=== PATIENT | female | born 1975 | race Caucasian/White ===

== ENCOUNTER 2019-06-26 11:45 | Emergency (ER) | payer BC ==
[~2019-06-26] VITALS: Ht 170.2 cm; Wt 67.1 kg
[~2019-06-26 11:45] MED LIST: BUPR100T7 PO; LISI10TA2 PO; OXYC1TAB15 PO
[2019-06-26 11:57] VITALS: BP 109/66
[2019-06-26] MEDS ORDERED: KETOROLAC 30 MG/ML VIAL. IM ONE (12:30)
--- NOTE | 2019-06-26 12:35 | RAD ---
Exam performed: Two views left hip. Clinical indication: Patient felt a pop and pain in the left hip and carrying a heavy object Date of Service: 06/26/2019 Comparison: None available FINDINGS: AP and lateral radiographs of the hip reveal the osseous structures to be intact and well aligned. The joint space is well-preserved. Evidence of fracture or dislocation is absent. Nonspecific bowel gas pattern Impression: No acute abnormal mobility seen in the left hip. Electronically signed by: Denise Norton MD (06/26/2019 12:33 PM) [facility]
[2019-06-26] MEDS ORDERED: HYDR-3165 PO (13:04)
[2019-06-26] MEDS ORDERED: MELO7.5T29 PO (13:04)
[2019-06-26] MEDS ORDERED: ORPH-16 PO (13:04)
--- NOTE | 2019-06-26 13:05 | PHYS DOC ---
Past History Past Medical History: Hypertension, Migraines, Other Past Surgical History: Appendectomy, Cholecystectomy, , Tubal ligation Alcohol Use: None Drug Use: None Adult General Chief Complaint Chief Complaint: HIP PAIN HPI HPI Patient is a 44-year-old female presents complaining of left hip pain that started yesterday. She was moving a heavy speaker and felt a pop in her left hip. She is able to walk but it hurts. No loss of bowel or bladder control. She did not fall. Increased pain with movement. Pain is moderate in intensity. Burning sensation as well. Feels like her leg will give out in the hip. No radiation of the discomfort.[] Review of Systems Review of Systems Constitutional: Denies fever or chills [] Eyes: Denies change in visual acuity, redness, or eye pain [] HENT: Denies nasal congestion or sore throat [] Respiratory: Denies cough or shortness of breath [] Cardiovascular: No chest pain or palpitations[] GI: Denies abdominal pain, nausea, vomiting, bloody stools or diarrhea [] : Denies dysuria or hematuria [] Musculoskeletal: Denies back pain, see history of present illness[] Integument: Denies rash or skin lesions [] Neurologic: Denies headache, focal weakness or sensory changes [] Endocrine: Denies polyuria or polydipsia [] All other systems were reviewed and found to be within normal limits, except as documented in this note. Current Medications Current Medications Current Medications Medications (Trade) Dose Ordered Sig/[facility] Start Time Stop Time Status Last Admin Dose Admin Ketorolac Tromethamine (Toradol 30mg Vial) 30 mg 1X ONCE 06/26/19 12:30 06/26/19 12:31 DC 06/26/19 12:28 30 MG Allergies Allergies Allergies Coded Allergies Type Severity Reaction Last Updated Verified No Known Drug Allergies 05/30/16 No Physical Exam Physical Exam Constitutional: Well developed, well nourished, no acute distress, non-toxic appearance. [] HENT: Normocephalic, atraumatic, bilateral external ears normal, oropharynx moist, no oral exudates, nose normal. [] Eyes: PERRLA, EOMI, conjunctiva normal, no discharge. [] Neck: Normal range of motion, no tenderness, supple, no stridor. [] Cardiovascular:Heart rate regular rhythm, no murmur [] Lungs & Thorax: Bilateral breath sounds clear to auscultation [] Abdomen: Bowel sounds normal, soft, no tenderness, no masses, no pulsatile masses. [] Skin: Warm, dry, no erythema, no rash. [] Back: No tenderness, no CVA tenderness. [] Extremities: Left hip has tenderness to palpation around the sciatic region. Limited active range of motion at the hip secondary to pain. Pelvis stable in 3 planes. No knee tenderness. She is able to ambulate with an antalgic gait. Patient is distally neurovascularly intact. The other 3 extremities show: No tenderness, no cyanosis, no clubbing, ROM intact, no edema. [] Neurologic: Alert and oriented X 3, normal motor function, normal sensory function, no focal deficits noted. [] Psychologic: Affect normal, judgement normal, mood normal. [] Current Patient Data Vital Signs Vital Signs Date Time Temp Pulse Resp B/P (MAP) Pulse Ox O2 Delivery O2 Flow Rate FiO2 06/26/19 11:57 97.9 80 16 100 Room Air EKG EKG [] Radiology/Procedures Radiology/Procedures PROCEDURE: HIP LEFT 2V WITH PELVIS Exam performed: Two views left hip. Clinical indication: Patient felt a pop and pain in the left hip and carrying a heavy object Date of Service: 06/26/2019 Comparison: None available FINDINGS: AP and lateral radiographs of the hip reveal the osseous structures to be intact and well aligned. The joint space is well-preserved. Evidence of fracture or dislocation is absent. Nonspecific bowel gas pattern Impression: No acute abnormal mobility seen in the left hip.[] Course & Med Decision Making Course & Med Decision Making Pertinent Labs and Imaging studies reviewed. (See chart for details) ED course: Patient arrived, was placed in bed, and tolerated exam well. She was transported to and from radiology with any Patients. She was given parenteral pain medicines which didn't improve her discomfort. After the return of the imaging findings, these were discussed with the patient voiced understanding. All questions were answered. She was discharged in improved condition. Medical decision making: There is no evidence of a fracture or dislocation. There may be some soft tissue injury that would require an MRI for follow-up. Number eye has not required on an emergent basis at this time. No evidence of cauda equina syndrome or neurologic or vascular compromise.[] Dragon Disclaimer Dragon Disclaimer This electronic medical record was generated, in whole or in part, using a voice recognition dictation system. Departure Departure: Impression: Primary Impression: Sprain of left hip Disposition: 01 HOME, SELF-CARE Condition: IMPROVED Referrals: XU RAMIREZ (PCP) Follow-up in 2 days Patient Instructions: Hip Exercises, Generic, SportsMed, Hip Pain Additional Instructions: Follow-up with your regular doctor in 2 days. Take the medication as prescribed. If the pain is not improving, you may need to have an outpatient MRI for further evaluation of the soft tissues such as muscles, ligaments, or tendons. This can be ordered by her primary care physician. Return to the ER if worsening pain, weakness, or any other concerns. Scripts Orphenadrine Citrate (ORPHENADRINE CITRATE) 100 Mg Tablet.er 100 MG PO BID for HIP PAIN, #20 TAB.SR Prov: WAN VILLAFANA DO 06/26/19 Hydrocodone Bit/Acetaminophen (NORCO 5-325 TABLET) 1 Each Tablet 1 TAB PO Q4-6HRS for severe pain, #10 TAB Prov: WAN VILLAFANA DO 06/26/19 Meloxicam (MELOXICAM) 7.5 Mg Tablet 7.5 MG PO DAILY for PAIN, #20 TAB Prov: WAN VILLAFANA DO 06/26/19 Problem Qualifiers Primary Impression: Sprain of left hip Encounter type: initial encounter Qualified Codes: S73.102A - Unspecified sprain of left hip, initial encounter WAN VILLAFANA DO Jun 26, 2019 13:05
== END 2019-06-26 13:15 | disposition home or self-care (01) ==
LOC: ER 11:45
DX: S73.102A Unspecified sprain of left hip, initial encounter (principal); I10 Essential (primary) hypertension; G43.909 Migraine, unspecified, not intractable, without status migrainosus; X50.9XXA Other and unspecified overexertion or strenuous movements or postures, initial encounter; Y93.89 Activity, other specified; Y92.89 Other specified places as the place of occurrence of the external cause; Y99.8 Other external cause status
CPT/HCPCS: 73502; 96372; 99284; J1885